=== PATIENT | female | born 1985 | race Caucasian/White ===

== ENCOUNTER 2025-04-07 08:43 | Outpatient (CLI) | payer BC | END 2025-04-07 08:44 | disposition home or self-care (01) | LOC: ULT 08:43 | PROVIDERS: ATTEND Nurse Practitioner Family | DX: K21.9 Gastro-esophageal reflux disease without esophagitis (principal); R74.8 Abnormal levels of other serum enzymes; R60.9 Edema, unspecified; R16.0 Hepatomegaly, not elsewhere classified; K76.0 Fatty (change of) liver, not elsewhere classified | CPT/HCPCS: 76700 ==